=== PATIENT | male | born 1960 | race African-American/Black ===

== ENCOUNTER 2016-10-30 22:35 | Emergency (ER) | payer OTHER ==
[~2016-10-30] VITALS: Ht 180.3 cm; Wt 77.0 kg
[2016-10-30 22:51] VITALS: BP 119/72
[2016-10-31] MEDS ORDERED: BACITRACIN ZINC OINT UDPKT TOP ONE (04:00)
== END 2016-10-31 05:03 | disposition home or self-care (01) ==
LOC: ER 22:35
DX: T25.022A Burn of unspecified degree of left foot, initial encounter (principal); X12.XXXA Contact with other hot fluids, initial encounter; Y93.89 Activity, other specified; Y99.0 Civilian activity done for income or pay; Y92.69 Other specified industrial and construction area as the place of occurrence of the external cause
CPT/HCPCS: 16000; 99283; 99284